=== PATIENT | female | born 1970 | race Caucasian/White ===

== ENCOUNTER 2017-07-12 18:59 | Emergency (ER) | payer BC ==
[2017-07-12] MEDS ORDERED: HYDROcodone/ACETAMIN 5-325 MG* 1 TAB PO ONE (19:03)
[2017-07-12 19:04] VITALS: BP 127/67
--- NOTE | 2017-07-12 19:48 | RAD ---
INDICATION: Left leg pain after karate injury COMPARISON: None TECHNIQUE: 6 views of the left hip and femur were obtained. FINDINGS: The visualized bones are well-corticated and properly aligned. The joint spaces are normal. There is no radiographic evidence of acute fracture or dislocation. IMPRESSION: No radiographically apparent fracture or dislocation involving the left hip or femur. If the patient's symptoms persist follow-up imaging is recommended.
[2017-07-12] MEDS ORDERED: LORazepam TAB(*) 1 MG PO ONE (20:05)
--- NOTE | 2017-07-12 20:58 | UC ---
Lower Extremity/Ankle HPI - HPI Summary HPI Summary: Patient is a 46-year-old female presenting to the with chief complaint of left leg pain after injury. She states while attempting to do a roundhouse kick at her martial arts class, she planted her left leg and twisted at the left hip, hearing a "pop" sound and feeling extreme pain to the left groin with radiation of pain to the lower extremity with numbness to the great toe. She was immediately unable to ambulate, endorses 10/10 pain, she appears to be in severe distress, shaking and crying on arrival. She is unable to extend the leg fully. She remains flexed 90 at the hip and flexed 90 at the knee. Denies any other injuries. There is no color or temperature changes to the ipsilateral leg. - History of Current Complaint Chief Complaint: UCLowerExtremity Stated Complaint: HIP INJURY Time Seen by Provider: 07/12/17 19:34 Hx Obtained From: Patient Hx Last Menstrual Period: 07/11/17 ?: No Onset/Duration: Sudden Onset Severity Initially: Severe Severity Currently: Severe Pain Intensity: 10 Pain Scale Used: 0-10 Numeric Aggravating Factor(s): Standing, Ambulation Alleviating Factor(s): Rest, Other - 90 flexion and hip Able to Bear Weight: No - Risk Factors Gout Risk Factors: Age Over 40 DVT Risk Factors: Negative Septic Arthritis Risk Factor: Negative - Allergies/Home Medications Allergies/Adverse Reactions: Allergies Allergy/AdvReac Type Severity Reaction Status Date / Time No Known Allergies Allergy Verified 07/12/17 19:00 Home Medications: Home Medications NK [No Home Medications Reported] 07/12/17 [History Confirmed 07/12/17] PMH/Surg Hx/FS Hx/Imm Hx Previously Healthy: Yes - Surgical History Surgical History: Yes Surgery Procedure, Year, and Place: gallbladder out - Social History Occupation: Employed Full-time Lives: With Family Alcohol Use: Weekly Substance Use Type: None Smoking Status (MU): Never Smoked Tobacco Review of Systems Constitutional: Negative Skin: Negative Respiratory: Negative Cardiovascular: Negative Neurovascular: Negative Musculoskeletal: Arthralgia, Myalgia Neurological: Weakness, Numbness Psychological: Anxious Is Patient Immunocompromised?: No All Other Systems Reviewed And Are Negative: Yes Physical Exam Triage Information Reviewed: Yes Appearance: Well-Appearing, Well-Nourished Vital Signs: Initial Vital Signs Temp 98 F 07/12/17 19:00 Pulse 116 07/12/17 19:00 Resp 18 07/12/17 19:00 BP 127/67 07/12/17 19:00 Pulse Ox 98 07/12/17 19:00 Vital Signs Reviewed: Yes Eye Exam: Normal Neck: Positive: Supple, Nontender Respiratory: Positive: Chest non-tender, Lungs clear Cardiovascular: Positive: RRR Musculoskeletal: Positive: ROM Limited @ - 90 degrees flexion of hip and knee Psychological Exam: Normal Psychological: Positive: Normal Response To Family Skin Exam: Normal Lower Extremity Course/Dx - Course Course Of Treatment: Patient is sent to x-ray of the hip and pelvis which shows no acute findings. X-ray tech unable to obtain lower extremity x-rays due to positioning. Patient is unable to extend at the hip or at the knee joint past 90 in each joint. She is given hydrocodone/acetaminophen 10 mg on arrival and denies improvement in pain. We are unable to complete a CT here in the urgent care. Also, patient continues to be unable to bear weight, or extend at the hip joint. Worsening pain now to the hamstring which upon attempting to extend at the knee joint radiates down into the foot and great toe with numbness and tingling. Pulses +2 intact bilaterally both pedal E and posterior tibial. There does not appear to be any evidence of quadriceps tendon rupture or hip dislocation. Discussed the case with Dr. Lopez. Patient is sent directly from urgent care to the ED for further evaluation. She is given Ativan 1 mg prior to discharge for muscle spasms. - Differential Dx/Diagnosis Differential Diagnosis/HQI/PQRI: Contusion, Dislocation, Sprain, Strain Provider Diagnoses: Leg Pain Discharge - Sign-Out/Discharge Documenting (check all that apply): Discharge/Admit/Transfer - Discharge Plan Condition: Stable Disposition: HOME Referrals: No Primary Care Phys,NOPCP [Primary Care Provider] - Additional Instructions: Go directly to the ED - Billing Disposition and Condition Condition: STABLE Disposition: HOME
== END 2017-07-12 20:20 | disposition home or self-care (01) ==
LOC: UCEAST 18:59
DX: M79.605 Pain in left leg (principal); R20.0 Anesthesia of skin; F41.9 Anxiety disorder, unspecified
CPT/HCPCS: 99201; A9270-GY; G0463

== ENCOUNTER 2017-07-12 20:49 | Emergency (ER) | payer BC ==
[2017-07-12 20:59] VITALS: BP 137/78
--- NOTE | 2017-07-12 21:38 | ED ---
Lower Extremity - HPI Summary HPI Summary: Complains of pop and pain in left inguinal crease while throwing a high karate kick. Pop and pain is was in supporting leg, with pain radiating down posterior and medial thigh. Denies loss of sensation or function distally. Patient presents with hip and knee flexed at 90, states pain with extension, internal rotation, external rotation. No prior history of surgery on left hip or knee. Medical history is none. No anti-coag - History of Current Complaint Chief Complaint: EDHipPelvisInjury Stated Complaint: LT LEG INJURY Time Seen by Provider: 07/12/17 21:09 Hx Obtained From: Patient Hx Last Menstrual Period: 07/11/17 Mechanism Of Injury: Other Onset of Pain: Immediate, Hours Onset/Duration: Hours Severity Initially: Severe Pain Intensity: 7 Pain Scale Used: 0-10 Numeric Timing: Constant Location: Radiates To Character Of Pain: Sharp, Aching Aggravating Factor(s): Ambulation, Movement Able to Bear Weight: No - Allergies/Home Medications Allergies/Adverse Reactions: Allergies Allergy/AdvReac Type Severity Reaction Status Date / Time No Known Allergies Allergy Verified 07/12/17 19:00 PMH/Surg Hx/FS Hx/Imm Hx - Cancer History Hx Chemotherapy: No Hx Radiation Therapy: No - Surgical History Surgery Procedure, Year, and Place: out Infectious Disease History: No Infectious Disease History: Denies: Traveled Outside the [place] in Last 30 Days - Social History Alcohol Use: Weekly Substance Use Type: Reports: None Smoking Status (MU): Never Smoked Tobacco Review of Systems Constitutional: Negative Eyes: Negative ENT: Negative Cardiovascular: Negative Respiratory: Negative Gastrointestinal: Negative Genitourinary: Negative Skin: Negative Neurological: Negative Psychological: Normal All Other Systems Reviewed And Are Negative: Yes Physical Exam - Summary Physical Exam Summary: No evidence of ecchymosis, deformity, erythema, extra warmth to left hip, left thigh left knee. Pain with palpation of posterior thigh, medial thigh, left inguinal area. No pain with palpation of left neck lateral hip. No pain with palpation of lower abdomen. Full range of motion of ankle, foot, toes. Mildly limited range of motion of the knee secondary to pain in hip. PMS intact distally Triage Information Reviewed: Yes Vital Signs On Initial Exam: Initial Vitals Temp Pulse Resp BP Pulse Ox 98.5 F 107 22 137/78 99 07/12/17 20:54 05/09/18 20:54 07/12/17 20:54 07/12/17 20:54 07/12/17 20:54 Vital Signs Reviewed: Yes Appearance: Positive: Well-Appearing Skin: Positive: Warm Head/Face: Positive: Normal Head/Face Inspection Eyes: Positive: Normal Neck: Positive: Supple Respiratory/Lung Sounds: Positive: Clear to Auscultation Cardiovascular: Positive: Normal Abdomen Description: Positive: Nontender Neurological: Positive: Normal Psychiatric: Positive: Normal AVPU Assessment: Alert - Willcox Coma Scale Best Eye Response: 4 - Spontaneous Best Motor Response: 6 - Obeys Commands Best Verbal Response: 5 - Oriented Coma Scale Total: 15 Diagnostics - Vital Signs Vital Signs Temp Pulse Resp BP Pulse Ox 07/12/17 20:54 98.5 F 107 22 137/78 99 - Laboratory Lab Statement: Any lab studies that have been ordered have been reviewed, and results considered in the medical decision making process. - CT pelvis CT Interpretation: Positive (See Comments) - hematoma of biceps of left leg, possible tendinous rupture CT Interpretation Completed By: Radiologist Re-Evaluation - Re-Evaluation 1 Re-Evaluation Time: 21:38 - patient refuses pain medication at this time. Has already taken 2 Vicodin at Lower Extremity Course/Dx - Course Course Of Treatment: Have discussed patient with Dr. Lafleur who stated it sounded like a muscle tear, recommended patient be put in a knee immobilizer and given crutches and follow up in clinic for MRI. Patient refuses prescription for pain medication, except a prescription for Flexeril - Diagnoses Provider Diagnoses: Hematoma of lower extremity - Physician Notifications Discussed Care Of Patient With: Justin Lafleur Time Discussed With Above Provider: 22:26 Discharge - Sign-Out/Discharge Documenting (check all that apply): Discharge/Admit/Transfer - Discharge Plan Condition: Good Disposition: HOME Patient Education Materials: Hematoma (ED), Hamstring Injury (ED), Knee Immobilizer (ED), Tendon Rupture (ED) Referrals: No Primary Care Phys,NOPCP [Primary Care Provider] - Justin Lafleur MD [Medical Doctor] - Additional Instructions: Follow-up tomorrow with orthopedics Dr. Lafleur. Return to the ED for any new or worsening symptoms - Billing Disposition and Condition Condition: GOOD Disposition: HOME
--- NOTE | 2017-07-12 22:10 | RAD ---
CLINICAL HISTORY: Left hip pain after a karate kick COMPARISON: Same day radiograph that did not show any acute abnormality. TECHNIQUE: Axial CT images of the pelvis were obtained without intravenous contrast. Reformats in the sagittal and coronal planes were created and reviewed. FINDINGS: Insinuating the muscles of the left hamstring there is a mixed attenuation fluid collection compatible with hematoma that can be seen surrounding the muscle belly of the biceps for more S extending along the medial and anterior margin of the muscle measuring up to 3.8 x 7.5 cm in the axial plane (image 110 of 126). In the sagittal plane the hematoma measures approximately 11.6 cm extending beneath the gluteus javi. The visualized bones are intact and appropriately aligned. The visualized soft tissue structures of the lower abdomen and pelvis are grossly normal. IMPRESSION: CT findings are consistent with intramuscular hematoma insinuating the "hamstring" muscles measuring approximately 3.8 x 7.5 cm in the axial plane and at least 12 cm in length. The hematoma appears to insinuate the anterior and medial margin of the long head biceps femoris and either involves or displaces the semimembranous and semitendinous muscles. Please correlate to signs and symptoms of tendinous rupture. More definitive anatomical definition can be acquired with MRI on a nonemergent basis.
[2017-07-12] MEDS ORDERED: Diazepam TAB(*) 5 MG PO ONE (22:42)
== END 2017-07-12 23:24 | disposition home or self-care (01) ==
LOC: ED 20:49
DX: S70.12XA Contusion of left thigh, initial encounter (principal); X50.9XXA Other and unspecified overexertion or strenuous movements or postures, initial encounter; Y93.75 Activity, martial arts; Y92.9 Unspecified place or not applicable
CPT/HCPCS: 72192; 99282; A9270-GY